=== PATIENT | female | born 1975 | race African-American/Black ===

== ENCOUNTER 2023-06-22 16:20 | Emergency (ER) | payer OTHER ==
[2023-06-22] MEDS ORDERED: Lidocaine 1% PF 5 ML VIAL ONE (17:18)
== END 2023-06-22 18:18 | disposition home or self-care (01) ==
LOC: ERS 16:20
DX: H66.41 Suppurative otitis media, unspecified, right ear (principal); F17.210 Nicotine dependence, cigarettes, uncomplicated
CPT/HCPCS: 69000

== ENCOUNTER 2023-07-15 11:32 | Emergency (ER) | payer OTHER ==
[2023-07-15] MEDS ORDERED: Meclizine HCl 25 MG TAB ONE (12:40)
[2023-07-15 12:50] LABS: #Eosinphils 0.2 thou/uL (0.0-0.7); #Monocytes 0.4 thou/uL (0.11-0.59); #Neutrophils 5.1 thou/uL (1.40-6.50); %Basophils 0.4 % (0.0-1.0); %Eosinophils 1.9 % (0.0-10.0); %Lymphocytes 26.3 % (21.0-51.0); %Monocytes 5.5 % (0.0-10.0); %Neutrophils 65.6 % (42.0-75.0); Hematocrit 37.5 % (36.0-47.0); Hemoglobin 12.4 g/dL (12.0-16.0); Mean Corpuscular HGB CONC 33.1 g/dL (32.0-36.0); Mean Corpuscular Hemoglobin 32.2 pg (27.0-31.0); Mean Corpuscular Volume 97.4 fl (78.0-98.0); Mean Platelet Volume 10.7 fL (7.4-10.4); Platelet Count 158 10x3/uL (130-400); RBC Distribution Width 14.2 % (11.5-14.5); Red Blood Cell (RBC) Count 3.85 mill/uL (4.20-5.40); White Blood Cell (WBC) Count 7.8 10x3/uL (4.8-10.8)
[2023-07-15 13:13] LABS: ALT (SGPT) 7 U/L (8-55); AST (SGOT) 15 U/L (5-34); Albumin 4.4 g/dL (3.5-5.0); Alkaline Phosphatase 83 U/L (40-110); Anion Gap 14 mmol/L (10-20); BUN (Urea Nitrogen) 11 mg/dL (7.0-18.7); Bilirubin, Total 0.5 mg/dL (0.2-1.2); Calc. Creatinine Clearance 0 mL/min (70-130); Calcium 9.2 mg/dL (7.8-10.44); Carbon Dioxide 21 mmol/L (22-29); Chloride 106 mmol/L (98-107); Estimated GFR 89; Globulin 3.7 g/dL (2.4-3.5); Glucose 100 mg/dL (70-105); Potassium 3.9 mmol/L (3.5-5.1); Protein, Total 8.1 g/dL (6.0-8.3); Sodium 137 mmol/L (136-145)
[2023-07-15 13:16] LABS: Troponin I Less than 0.010 ng/mL (< 0.028)
== END 2023-07-15 15:26 | disposition home or self-care (01) ==
LOC: ERS 11:32
DX: R42 Dizziness and giddiness (principal); R03.0 Elevated blood-pressure reading, without diagnosis of hypertension; F17.210 Nicotine dependence, cigarettes, uncomplicated
CPT/HCPCS: 80053; 84484; 85025; 93005

== ENCOUNTER 2023-11-09 12:03 | Emergency (ER) | payer OTHER, SELFPAY ==
[2023-11-09 13:27] LABS: #Eosinphils 0.1 thou/uL (0.0-0.7); #Monocytes 0.4 thou/uL (0.11-0.59); #Neutrophils 5.1 thou/uL (1.40-6.50); %Basophils 0.4 % (0.0-1.0); %Eosinophils 1.8 % (0.0-10.0); %Lymphocytes 28.2 % (21.0-51.0); %Monocytes 5.1 % (0.0-10.0); %Neutrophils 64.2 % (42.0-75.0); Hematocrit 38.2 % (36.0-47.0); Hemoglobin 12.7 g/dL (12.0-16.0); Mean Corpuscular HGB CONC 33.2 g/dL (32.0-36.0); Mean Corpuscular Hemoglobin 33.8 pg (27.0-31.0); Mean Corpuscular Volume 101.6 fl (78.0-98.0); Mean Platelet Volume 9.7 fL (7.4-10.4); Platelet Count 305 10x3/uL (130-400); RBC Distribution Width 13.4 % (11.5-14.5); Red Blood Cell (RBC) Count 3.76 mill/uL (4.20-5.40); White Blood Cell (WBC) Count 7.9 10x3/uL (4.8-10.8)
[2023-11-09 13:30] LABS: BHCG - Serum Negative (NEGATIVE); Pregs Control Background? CLEAR/WHITE (CLR/WHITE); Pregs Control Bar Appear? YES (CONTROL BAR)
[2023-11-09 13:45] LABS: ALT (SGPT) 12 U/L (8-55); AST (SGOT) 14 U/L (5-34); Alkaline Phosphatase 82 U/L (40-110); Anion Gap 9 mmol/L (10-20); BUN (Urea Nitrogen) 8 mg/dL (7.0-18.7); Bilirubin, Total 0.4 mg/dL (0.2-1.2); Calc. Creatinine Clearance 0 mL/min (70-130); Calcium 9.1 mg/dL (7.8-10.44); Carbon Dioxide 27 mmol/L (22-29); Chloride 106 mmol/L (98-107); Estimated GFR 96; Globulin 3.8 g/dL (2.4-3.5); Glucose 84 mg/dL (70-105); Potassium 4.4 mmol/L (3.5-5.1); Protein, Total 7.8 g/dL (6.0-8.3); Sodium 138 mmol/L (136-145)
[2023-11-09 16:46] LABS: Bacteria/HPF None Seen HPF (None Seen); Bilirubin Negative (Negative); Blood, Urine Negative (Negative); CAUTI Indications for Culture Pelvic or flank pain; Clarity Clear (Clear); Glucose, Urine (Dipstick) Normal (Negative); Ketone, Urine Negative (Negative); Leukocyte Negative Leu/uL (Negative); Nitrite Negative (Negative); Protein, Urine (Dipstick) 10 mg/dL (Neg-Trace); RBC/HPF 0-3 HPF (0-3); Specific Gravity, Urine 1.023 (1.002-1.036); Squamous Epithelial 0-3 HPF (0-3); WBC/HPF 0-3 HPF (0-3)
[2023-11-09 16:48] LABS: Urine Culture Reflex No No
== END 2023-11-09 17:20 | disposition home or self-care (01) ==
LOC: ERS 12:03
DX: R07.9 Chest pain, unspecified (principal); R42 Dizziness and giddiness; F17.210 Nicotine dependence, cigarettes, uncomplicated
CPT/HCPCS: 36415; 71045; 80053; 81001; 84484; 84703; 85025; 93005